=== PATIENT | female | born 1955 | race Caucasian/White ===

== ENCOUNTER → 2025-01-15 10:44 | Outpatient (CLI) | payer MEDICARE, SELFPAY ==
--- NOTE | 2025-01-15 10:48 | DI.CT.S_ITS ---
PROCEDURE: CT SINUS SCREEN WO CON INDICATIONS: CHRONIC PANSINUSITIS TECHNIQUE: Noncontrast 3.0 mm axial images acquired from the frontal sinuses to the mid-sella, with coronal and sagittal reformats. For radiation dose reduction, the following was used: automated exposure control, adjustment of mA and/or kV according to patient size. COMPARISON: None. FINDINGS: Image quality: Excellent. Maxillary Sinuses: No bony remodeling or destruction. Sinuses are clear. Ethmoid Air Cells: No bony remodeling or destruction. Focal [id number] mucosal thickening can be seen within the posterior left ethmoid air cells, with milder mucosal thickening seen elsewhere. Sphenoid Sinuses: No bony remodeling or destruction. Sinuses are clear. Frontal Sinuses: No bony remodeling or destruction. Sinuses are clear. Ostiomeatal Complexes: The ostiomeatal complexes are patent, yet they are highly constitutionally narrowed, with right-sided Lyle cells. Miscellaneous: Visualized intra-orbital contents are normal. 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 There is at least moderate leftward nasal septal deviation. Focal moderate degenerative change can be seen involving the right temporomandibular joint. 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 At least moderate leftward nasal septal deviation. Dictated by: Stoney Bajwa M.D. on 01/15/2025 at 11:37 Approved by: Stoney Bajwa M.D. on 01/15/2025 at 11:40
== END ==
PROVIDERS: PCP Family Medicine; Referring Provider Otolaryngology; Visit Provider Otolaryngology
DX: J32.4 Chronic pansinusitis (principal); J34.2 Deviated nasal septum
CPT/HCPCS: 70486

== ENCOUNTER → 2025-10-30 11:28 | Outpatient (CLI) | payer MEDICARE, SELFPAY ==
--- NOTE | 2025-10-30 11:30 | DI.US.S_ITS ---
PROCEDURE: US PELVIC COMPLETE INDICATIONS: RIGHT PELVIC PAIN AND ADNEXAL FULLNESS ON EXAM. TECHNIQUE: Real-time scanning was performed of the pelvic organs, with image documentation. Additional endovaginal scanning was necessary due to incomplete visualization of the adnexal and endometrial structures by transabdominal scanning. COMPARISON: None. FINDINGS: Uterus: 6.4 x 4.6 x 3.5 cm. The endometrium is nonthickened, measuring 2 mm. Multiple fibroids are present, mostly intramural, partially calcified, largest measuring 2.9 x 2.3 cm in the anterior uterus. A mid uterus fibroid measures 2.2 x 1.7 cm. There are cervical nabothian cysts. Ovaries: Nonenlarged ovaries measuring 2 mL bilaterally. Nonspecific small bilateral calcifications are present, probably senescent. No significant solid or cystic lesion. Other: No pathologic free abdominal or pelvic fluid. IMPRESSION: Fibroid uterus, mostly intramural, partially calcified. Nonthickened endometrium. Nonenlarged ovaries. Small non-specific calcifications are present, probably senescent. Dictated by: Erik Monatno M.D. on 10/30/2025 at 14:55 Approved by: Erik Montano M.D. on 10/30/2025 at 14:57
== END ==
LOC: US 11:30
PROVIDERS: PCP Family Medicine; Referring Provider Obstetrics & Gynecology; Visit Provider Obstetrics & Gynecology
DX: D25.1 Intramural leiomyoma of uterus (principal); R10.20 Pelvic and perineal pain unspecified side; N88.8 Other specified noninflammatory disorders of cervix uteri
CPT/HCPCS: 76830; 76856